=== PATIENT | female | born 1950 | race Caucasian/White ===

== ENCOUNTER 2017-03-19 16:54 | Emergency (ER) | payer MEDICARE, OTHER ==
[~2017-03-19] VITALS: Ht 154.9 cm; Wt 87.0 kg
[~2017-03-19 16:54] MED LIST: ACET500C5 PO; ATOR40TA68 PO; AZIT250T94 PO; BENHCT2012 PO; CETI10CA PO; IBUP-1542 PO; IBUP-727 PO; INSU100V18 SC; METF500T4 PO; METO25TA7 PO; OMEP20CA16 PO; UDROBDM PO
[2017-03-19 17:23] VITALS: Ht 154.9 cm; Wt 87.0 kg
[2017-03-19] MEDS ORDERED: IBUPROFEN 600 MG TAB PO ONE (18:30)
--- NOTE | 2017-03-19 19:16 | RADRPT ---
PROCEDURE: Chest x-ray. CLINICAL INDICATION: Shortness of breath. TECHNIQUE: PA view of the chest. COMPARISON: 02/16/2015. FINDINGS: There is mild bibasilar atelectasis. No pulmonary edema or conolidation is identified. The cardiac silhouette is enlarged. There are aortic calcifications. There is a left chest cardiac pacemaker. No pleural effusion is seen. There is no pneumothorax. IMPRESSION: 1. No evidence of acute cardiopulmonary disease. 2. Enlarged cardiac silhouette and aortic atherosclerosis. 3. Cardiac pacemaker. RPTAT: HTAR .Alex Pereira MD, Date Time Electronically viewed and signed by .Alex Pereira MD, MD on 03/19/2017 19:16 .R/
[2017-03-19] MEDS ORDERED: AZIT250T94 PO (19:36)
[2017-03-19] MEDS ORDERED: IBUP-1542 PO (19:36)
[2017-03-19] MEDS ORDERED: D-ME473S18 PO (19:37)
--- NOTE | 2017-03-19 19:41 | ERD ---
ER Documentation Chief Complaint Date/Time DATE: 03/19/17 TIME: 19:40 Chief Complaint SORE THROAT X 2 DAYS, COUGH, LOW GRADE FEVERS HPI 66-year-old female presents with low-grade fevers, productive cough and sore throat for last 2 days. She denies chest pain, vomiting, abdominal pain, neck stiffness, rashes. Patient has diabetes and blood sugar was 150 today. ROS All systems reviewed and are negative except as per history of present illness. Medications Home Meds Active Scripts Dextromethorphan Hb-Promethazine Hcl (Promethazine DM Syrup) 473 Ml Syrup, 5 ML PO Q6H Y for COUGH, #4 OZ Prov:JUSTIN HIGGINBOTHAM MD 03/19/17 Ibuprofen* (Motrin*) 600 Mg Tab, 600 MG PO Q6, #15 TAB Prov:JUSTIN HIGGINBOTHAM MD 03/19/17 Azithromycin* (Zithromax*) 250 Mg Tablet, 250 MG PO .ZPACK DIRECTED, #6 TAB TAKE 500 MG (2 TABS) THE FIRST DAY THEN 250 MG (1 TAB) DAYS 2-5 Prov:JUSTIN HIGGINBOTHAM MD 03/19/17 Acetaminophen* (Tylophen*) 500 Mg Capsule, 1 CAP PO Q6H Y for PAIN AND OR ELEVATED TEMP, #30 CAP Prov:RAF PURI PA-C 09/13/16 Ibuprofen* (Motrin*) 600 Mg Tab, 600 MG PO Q6, #30 TAB Prov:RAF PURI PA-C 09/13/16 Guaifenesin-Dextromethorphan* (Robitussin* DM) 100MG/10MG/5ML Syrup, 10 ML PO Q6H Y for COUGH for 5 Days, ML Prov:RAF PURI PA-C 09/13/16 Cetirizine Hcl* (Zyrtec*) 10 Mg Capsule, 10 MG PO DAILY, #14 TAB.CHEW Prov:RAF PURI PA-C 09/13/16 Azithromycin* (Zithromax*) 250 Mg Tablet, 250 MG PO .ZPACK DIRECTED, #6 TAB TAKE 500 MG (2 TABS) THE FIRST DAY THEN 250 MG (1 TAB) DAYS 2-5 Prov:RAF PURI PA-C 09/13/16 Reported Medications Omeprazole* (Omeprazole*) 20 Mg Capsule.dr, 20 MG PO DAILY, CAP 02/16/15 Atorvastatin* (Atorvastatin*) 40 Mg Tablet, 40 MG PO HS, TAB 02/16/15 Olmesartan-Hydrochlorothiazide (Benicar HCT) 20-12.5 Mg Tablet, 1 TAB PO DAILY, TAB 02/16/15 Metoprolol Succinate* (Toprol XL*) 25 Mg Tab.sr.24h, 25 MG PO DAILY, TAB 02/16/15 Metformin Hcl* (Metformin Hcl*) 500 Mg Tablet, 500 MG PO WITH MEALS, TAB 02/16/15 Insuln Asp Prt/Insulin Aspart (Novolog Mix 70-30 Vial*) 100 Units/Ml Vial, 44 UNIT SC QPM, VIAL 02/16/15 Insuln Asp Prt/Insulin Aspart (Novolog Mix 70-30 Vial*) 100 Units/Ml Vial, 42 UNIT SC QAM, VIAL 02/16/15 Ibuprofen (Motrin) 600 Mg Tablet, 600 MG PO TID 05/30/12 Allergies Allergies: Coded Allergies: No Known Allergy (Unverified , 02/16/15) PMhx/Soc History of Surgery: Yes (ORIF?) Anesthesia Reaction: No Hx Neurological Disorder: No Hx Respiratory Disorders: No Hx Cardiac Disorders: Yes (HTN. HIGH CHOLESTEROL) Hx Psychiatric Problems: No Hx Miscellaneous Medical Probl: Yes (htn,DM type 2,dyslipidemia,bradycardia) Hx Alcohol Use: No Hx Substance Use: No Hx Tobacco Use: No Smoking Status: Never smoker Physical Exam Vitals Vital Signs Date Time Temp Pulse Resp B/P Pulse Ox O2 Delivery O2 Flow Rate FiO2 03/19/17 17:23 98.1 74 18 97 Physical Exam Const: [] Alert, morbidly obese, [id number] per Head: Atraumatic Eyes: Normal Conjunctiva ENT: Normal External Ears, Nose and Mouth. TMs normal oropharynx normal. Neck: Full range of motion..~ No meningismus. Resp: Clear to auscultation bilaterally. Coarse cough without rales or wheezing appreciated. Cardio: Regular rate and rhythm, no murmurs Abd: Soft, non tender, non distended. Normal bowel sounds Skin: No petechiae or rashes Back: No midline or flank tenderness Ext: No cyanosis, or edema Neur: Awake and alert Psych: Normal Mood and Affect Results 24 hrs Current Medications Medications (Trade) Dose Ordered Sig/Corey Route PRN Reason Start Time Stop Time Status Last Admin Dose Admin Ibuprofen (Motrin) 600 mg ONCE ONCE PO 03/19/17 18:30 03/19/17 18:31 DC 03/19/17 18:33 Procedures/MDM Patient was given ibuprofen for pain and fever. Chest X-ray 1V Interpreted by me: Soft Tissue: No acute abnormalities Bones: No acute abnormalities Mediastinum/Cardiac Silhouette/Lungs: [No acute abnormalities]. Impression have normal 1 view chest x-ray Patient presents with URI symptoms and presents with cough for last 3 days. She will treated with Zithromax, promethazine and ibuprofen. There is no evidence of hypoxemia or respiratory distress. The patient was stable with no new complaints during the ER course. Clinically, there is no current evidence to suggest meningitis, sepsis, acute abdomen, pneumonia, acute coronary syndrome , pulmonary embolism, or any other emergent condition appearing to require further evaluation or hospitalization. The patient should certainly return for any new or worsening symptoms per the aftercare instructions. They should otherwise follow-up with her primary care doctor for reevaluation this week. Departure Diagnosis: Primary Impression: URI, acute Condition: Stable Patient Instructions: Acute Bronchitis Additional Instructions: Examines normal hoy. Cheque otro vez con bach doctor primario en el proximo dove or regresa para mas o nueva simptomas. JUSTIN HIGGINBOTHAM MD Mar 19, 2017 19:41
[2017-03-19 20:11] VITALS: BP 144/69; PULSE 62; RESP 18; TEMP 97.3
== END 2017-03-19 20:12 | disposition home or self-care (01) ==
LOC: FTE 16:54
DX: J06.9 Acute upper respiratory infection, unspecified (principal); I10 Essential (primary) hypertension; E11.9 Type 2 diabetes mellitus without complications; Z79.4 Long term (current) use of insulin; Z79.84 Long term (current) use of oral hypoglycemic drugs
CPT/HCPCS: 71010

== ENCOUNTER 2017-12-28 10:12 | Day surgery (SDC) | END 2017-12-28 17:36 | disposition home or self-care (01) ==

== ENCOUNTER 2018-03-12 15:40 | Emergency (ER) | END 2018-03-13 00:02 | disposition home or self-care (01) ==

== ENCOUNTER 2018-10-18 09:32 | Emergency (ER) | payer MEDICARE, OTHER ==
[~2018-10-18] VITALS: Wt 87.2 kg
[~2018-10-18 09:32] MED LIST changes: -ACET500C5 PO; -ATOR40TA68 PO; -AZIT250T94 PO; -BENHCT2012 PO; -CETI10CA PO; +EMPA10TA PO; -IBUP-1542 PO; -IBUP-727 PO; -INSU100V18 SC; +METF-480 PO; -METF500T4 PO; -METO25TA7 PO; +NOVO3I SC; -OMEP20CA16 PO; +PANT40TA4 PO; +PRED50TA PO; -UDROBDM PO; +VALA1000 PO
[2018-10-18 09:35] VITALS: BP 130/61; PULSE 77; RESP 20
[2018-10-18] MEDS ORDERED: ACETAMINOPHEN 500 MG TAB PO STA (10:08)
[2018-10-18] MEDS ORDERED: D-ME473S2 PO (10:52)
[2018-10-18] MEDS ORDERED: ACET500C5 PO (10:52)
--- NOTE | 2018-10-18 10:54 | ERD ---
ER Documentation Chief Complaint Chief Complaint cough, congestion, sore throat HPI 68-year-old FEmale presents with a four-day history of cough, congestion, sore throat. She has mild anterior chest pain with coughing. She may have had tactile fevers at home but no fever triage. She denies abdominal pain, vomitin g, additional symptoms. ROS All systems reviewed and are negative except as per history of present illness. Medications Home Meds Active Scripts Dextromethorphan Hb-Promethazine Hcl* (Promethazine DM* Syrup) 473 Ml Syrup, 5 ML PO Q6 PRN for COUGH for 5 Days, ML Prov:JUSTIN HIGGINBOTHAM MD 10/18/18 Acetaminophen* (Tylophen*) 500 Mg Capsule, 1 CAP PO Q6H PRN for PAIN AND OR ELEVATED TEMP, #15 CAP Prov:JUSTIN HIGGINBOTHAM MD 10/18/18 Prednisone* (Prednisone*) 50 Mg Tablet, 50 MG PO DAILY for 5 Days, TAB Prov:KARI WOODS MD 03/12/18 Valacyclovir HCl (Valacyclovir) 1,000 Mg Tablet, 1000 MG PO TID for 7 Days, TAB Prov:KARI WOODS MD 03/12/18 Reported Medications Empagliflozin (Jardiance) 10 Mg Tablet, 10 MG PO DAILY, TAB 03/12/18 Pantoprazole* (Pantoprazole*) 40 Mg Tablet.dr, 40 MG PO AC BREAKFAST, TAB 03/12/18 Metformin* (Glucophage*) 850 Mg Tablet, 850 MG PO WITH MEALS, #90 TAB 03/12/18 Insulin Aspart* (Novolog Insulin Pen*) 100 Unit/Ml Soln, 45 UNIT SC QPM, EA 03/12/18 Insulin Aspart* (Novolog Insulin Pen*) 100 Unit/Ml Soln, 47 UNIT SC QAM, EA 03/12/18 Allergies Allergies: Coded Allergies: No Known Allergy (Unverified , 03/12/18) PMhx/Soc History of Surgery: Yes (PACER INSERTION) Anesthesia Reaction: No Hx Neurological Disorder: No Hx Respiratory Disorders: No Hx Cardiac Disorders: Yes (PACER INSERTION, HTN, HYPERLIPIDEMIA, CAD) Hx Psychiatric Problems: No Hx Miscellaneous Medical Probl: No Hx Alcohol Use: No Hx Substance Use: No Hx Tobacco Use: No Smoking Status: Never smoker FmHx Family History: No diabetes, No coronary disease, No other Physical Exam Vitals Vital Signs Date Temp Pulse Resp B/P (MAP) Pulse Ox O2 O2 Flow FiO2 Time Delivery Rate 10/18/18 97.6 77 20 130/61 95 09:35 (84) Physical Exam Const: No acute distress Head: Atraumatic Eyes: Normal Conjunctiva ENT: Normal External Ears, Nose and Mouth. Neck: Full range of motion. No meningismus. Resp: Clear to auscultation bilaterally Cardio: Regular rate and rhythm, no murmurs Abd: Soft, non tender, non distended. Normal bowel sounds Skin: No petechiae or rashes Back: No midline or flank tenderness Ext: No cyanosis, or edema Neur: Awake and alert Psych: Normal Mood and Affect Results 24 hrs Current Medications Medications Dose Sig/Corey Start Time Status Last (Trade) Ordered Route PRN Stop Time Admin Dose Reason Admin 500 mg ONCE STAT 10/18/18 DC 10/18/18 Acetaminophen PO 10:08 10/18/18 10:20 (Tylenol 10:10 Tab) Procedures/MDM EKG: Rate/Rhythm: Paced rhythm. Rate equals 68. QRS, ST, T-waves: No changes consistent w/ acute ischemia Impression: No evidence of ischemia or arrhythmia. Impression-paced rhythm without findings of acute ischemia or arrhythmia. Chest X-ray 1V Interpreted by me: Soft Tissue: No acute abnormalities Bones: No acute abnormalities Mediastinum/Cardiac Silhouette/Lungs: No acute abnormalities. Impression- normal 1 view chest x-ray Patient presents with URI symptoms last 4 days without evidence of hypoxemia, respiratory distress, signs of abdominal pain, cardiac chest pain, SIRS criteria. She likely has a viral URI. She will treated with promethazine, Tylenol, primary care follow-up and return precautions. The patient was stable with no new complaints during the ER course. Clinically, there is no current evidence to suggest meningitis, sepsis, acute abdomen, pneumonia, stroke, acute coronary syndrome, pulmonary embolism, aortic dissection or any other emergent condition appearing to require further evaluation or hospitalization. Patient counseled regarding my diagnostic impression and care plan. Prior to discharge all questions answered. Pt agrees with treatment plan and understands strict return precautions. Pt is instructed to follow up with primary care provider within 24-48 hours. Precautionary instructions provided including instructions to return to the ER if not improving or for any worsening or changing symptoms or concerns. Departure Diagnosis: Primary Impression: Cough Condition: Stable Patient Instructions: Uri, Viral, No Abx (Adult) Additional Instructions: Examines normal hoy. Cheque otro vez con bach doctor primario en el proximo dove or regresa para mas o nueva simptomas. Probablamente un virus que dura 2-4 dove. cheque otro vez en el proximo sj para mas simptomas- vomito, dolor, belle, problemas con respirando, o con bach doctor primario. JUSTIN HIGGINBOTHAM MD Oct 18, 2018 10:54
== END 2018-10-18 11:04 | disposition home or self-care (01) ==
LOC: FTE 09:32
DX: R05 Cough (principal); I10 Essential (primary) hypertension; I25.10 Atherosclerotic heart disease of native coronary artery without angina pectoris; E11.9 Type 2 diabetes mellitus without complications; Z79.4 Long term (current) use of insulin
CPT/HCPCS: 71045; 93005